=== PATIENT | male | born 1965 | race Caucasian/White ===

== ENCOUNTER → 2016-08-15 | Outpatient (CLI) | payer OTHER ==
--- NOTE | 2016-08-15 17:50 | KCIC ---
History: Pre-MRI. Comparison: None. Findings: 2 Olvera' view of the orbits. No radiopaque foreign body is seen projecting over either orbit. Visualized paranasal sinuses appear clear. Impression: No evidence of radiopaque foreign body involving the orbits. Orbits are clear for MRI. Electronically signed by: Min Munroe MD (08/15/2016 5:46 PM)
--- NOTE | 2016-08-15 18:18 | KCIC ---
EXAM: Lumbar spine MRI without contrast. HISTORY: Lower back pain. TECHNIQUE: Multiplanar, multisequence magnetic resonance imaging of the lumbar spine was performed without contrast. COMPARISON: None. FINDINGS: There is mild lumbar dextroscoliosis centered at L3. There is minimal retrolisthesis of L3 on L4 and L4 and L5. There is degenerative endplate remodeling with disc space narrowing, disc desiccation, osteophytosis and Schmorl's node formation at L2-S1. There are several hemangiomas, the largest of which is seen within L1. There is no suspicious osseous lesion. The conus terminates at L1. At T12-L1, there is a shallow right paracentral disc protrusion and annular tear. There is no stenosis. At L1-L2, there is no stenosis. At L2-L3, there is a shallow left paracentral disc protrusion and bilateral foraminal to extraforaminal disc protrusions superimposed on a disc bulge and endplate remodeling. There is mild facet arthropathy. There is mild left greater than right foraminal stenosis. There is mild central canal stenosis. At L3-L4, there is a left foraminal to lateral disc protrusion superimposed on a disc bulge and endplate remodeling. There is minimal facet arthropathy. There is mild bilateral foraminal stenosis. At L4-5, there is a right paracentral to extraforaminal disc protrusion superimposed on a disc bulge and endplate remodeling. There is minimal facet arthropathy. There is mild right and minimal left foraminal stenosis. At L5-S1, there is a shallow left paracentral disc protrusion and a tear superimposed on a disc bulge and endplate remodeling. There is minimal facet arthropathy. There is no stenosis. IMPRESSION: 1. Multilevel degenerative changes of the lumbar spine, described in detail above. 2. Mild lumbar dextroscoliosis and minimal retrolisthesis of L3 on L4 and L4 on L5. Electronically signed by: Jenny Richardson MD (08/15/2016 6:15 PM)
== END | disposition home or self-care (01) ==
LOC: KCIC MRI 17:22
PROVIDERS: ATTEND Physician Assistant Medical
DX: Z01.00 Encounter for examination of eyes and vision without abnormal findings (principal); M47.896 Other spondylosis, lumbar region
CPT/HCPCS: 70030; 72148